=== PATIENT | male | born 1980 | race Caucasian/White ===

== ENCOUNTER 2023-11-29 13:27 | Emergency (ER) | payer OTHER ==
[~2023-11-29] VITALS: Ht 180.3 cm; Wt 95.3 kg
[2023-11-29 13:27] VITALS: BP_SYST 154; PULSE 104; RESP 22; TEMP 98.1; O2SAT 99
[2023-11-29] MEDS ORDERED: NITROGLYCERIN 1 INCH (GM) OINT. TP ONE (13:45)
[2023-11-29] MEDS ORDERED: ASPIRIN 81 MG TAB.CHEW PO ONE (13:45)
[2023-11-29] MEDS ORDERED: NACL 0.9% 1,000 ML IV ONE ×2 (13:45→14:15)
[2023-11-29] MEDS ORDERED: ONDANSETRON HCL 4 MG/2 ML VIAL ONE (13:55)
[2023-11-29 14:09] LABS: BASOPHILS % (AUTO) 0.8 % (0.0-2.0); EOSINOPHILS % (AUTO) 0.3 % (0.0-4.0); HEMATOCRIT 46.8 % (36-54); HEMOGLOBIN 15.5 g/dL (14.0-18.0); LYMPHOCYTES # (AUTO) 2.9 K/uL (1.0-5.5); LYMPHOCYTES % (AUTO) 49.4 % (20.5-51.5); MEAN CORPUSCULAR HEMOGLOBIN 27 pg (27-31); MEAN CORPUSCULAR HGB CONC 33 % (32-36); MEAN CORPUSCULAR VOLUME 80 fL (79.0-98.0); MONOCYTES # (AUTO) 0.4 K/uL (0.0-1.0); MONOCYTES % (AUTO) 6.9 % (1.7-9.3); NEUTROPHILS # (AUTO) 2.5 K/uL (1.8-7.7); NEUTROPHILS % (AUTO) 42.6 % (40.0-70.0); PLATELET COUNT (AUTO) 322 K/uL (130-430); RED BLOOD CELL COUNT(AUTO) 5.84 MIL/uL (4.2-6.2); RED CELL DISTRIBUTION WIDTH 13.5 % (9.0-15.0); WHITE BLOOD COUNT (AUTO) 5.9 K/uL (4.8-10.8)
[2023-11-29] MEDS ORDERED: ONDANSETRON HCL 4 MG/2 ML VIAL IVP ONE ×2 (14:15→17:30)
[2023-11-29] MEDS ORDERED: METOCLOPRAMIDE HCL 10 MG/2 ML VIAL IVP ONE (14:15)
[2023-11-29 14:19] LABS: ANION GAP 13 (5-15); CALCIUM 9.8 mg/dL (8.4-11.0); CARBON DIOXIDE 21 mmol/L (23-29); CHLORIDE 97 mmol/L (98-107); CREATININE 1.35 mg/dL (0.55-1.30); GFR AFRICAN AMERICAN 74 mL/min (>90); GLUCOSE 107 mg/dL (74-106); POTASSIUM 3.1 mmol/L (3.5-5.1); SODIUM SERUM 131 mmol/L (136-145); UREA NITROGEN, BLOOD 14 mg/dL (8-21)
[2023-11-29 14:21] LABS: GFR NON AFRICAN-AMERICAN 61 mL/min (>90)
[2023-11-29 14:27] LABS: LIPASE 45 U/L (16-77)
[2023-11-29 14:29] LABS: ALCOHOL, BLOOD < 3 mg/dL (<10)
[2023-11-29] MEDS ORDERED: MORPHINE 4 MG INJ. 4 MG/ML VIAL IVP ONE (15:00)
[2023-11-29 15:54] LABS: BARBITURATE, URINE NEGATIVE (NEG <=200); BENZODIAZEPINE, URINE NEGATIVE (NEG <=150); CANNABINOID, URINE POSITIVE (NEG <=50); COCAINE, URINE NEGATIVE (NEG <=150); METHAMPHETAMINES SCREEN,URINE NEGATIVE (NEG <=500); OPIATE, URINE NEGATIVE (NEG <=100); PHENCYCLIDINE SCREEN,URINE NEGATIVE (NEG <=25); UR TRICYCLIC ANTIDEPRESSANTS NEGATIVE (NEG <=300); URINE AMPHETAMINE NEGATIVE (NEG <=500); URINE METHADONE NEGATIVE (NEG <=200); URINE OXYCODONE SCREEN NEGATIVE (NEG <=100)
[2023-11-29] MEDS ORDERED: PANTOPRAZOLE SODIUM 40 MG/VIAL (PROTONIX) IVP ONE (16:00)
[2023-11-29] MEDS ORDERED: HYDROcodone/ACETAMIN 5-325 MG TAB (NORCO/ VICODIN) PO ONE (16:00)
[2023-11-29 16:05] LABS: COVID19 ANTIGEN SOFIA FIA NEGATIVE (NEGATIVE)
[2023-11-29 16:06] LABS: INFLUENZA TYPE A Negative (NEGATIVE); INFLUENZA TYPE B NEGATIVE (NEGATIVE)
[2023-11-29] MEDS ORDERED: DIPHENHYDRAMINE INJ 50 MG/ML VIAL IVP ONE (19:45)
[2023-11-29 21:23] VITALS: BP_SYST 119; PULSE 86; RESP 16; TEMP 98.2; O2SAT 95
== END 2023-11-29 21:23 | disposition short-term general hospital (02) ==
LOC: SED 13:27
DX: R07.89 Other chest pain (principal); R11.0 Nausea; I10 Essential (primary) hypertension; Z79.899 Other long term (current) drug therapy; Z20.822 Contact with and (suspected) exposure to COVID-19
CPT/HCPCS: 99285; 71260; 96374; 96375; 71045; 96361; 87426; 80307; 80048; 83880; 83690; 85025; 84484; 36415; 93005; 76376; 74177; 96376; 87804 ×2; J1200; J2765; J2405; C9113; J2270; J7030; G0482; Q9967

== ENCOUNTER 2024-01-05 14:31 | Emergency (ER) | payer OTHER ==
[~2024-01-05] VITALS: Ht 180.3 cm; Wt 95.7 kg
[2024-01-05] MEDS: PROPARACAINE (OPTHANINE 0.5%) 15 ML DROPS OP ONE (14:30)
[2024-01-05] MEDS: FLUORESCEIN SODIUM 1 MG OPHTHALMIC STRIP OP ONE (14:30)
[2024-01-05 14:40] VITALS: BP_SYST 124; PULSE 110; RESP 19; TEMP 98; O2SAT 98
[2024-01-05] MEDS ORDERED: TETRACAINE HCL/PF 0.5% OPHTHALMIC DROPS 4 ML OP ONE (14:45)
[2024-01-05] MEDS ORDERED: FLUORESCEIN SODIUM 1 MG OPHTHALMIC STRIP OP ONE (14:45)
[2024-01-05] MEDS ORDERED: HYDR-3917 PO (16:27)
[2024-01-05] MEDS ORDERED: IBUP-1971 PO (16:27)
[2024-01-05] MEDS: HYDROcodone/ACETAMIN 5-325 MG TAB (NORCO/ VICODIN) PO ONE (16:52)
[2024-01-05] MEDS: IBUPROFEN 800 MG TABLET PO ONE (16:52)
[2024-01-05 16:53] VITALS: BP_SYST 124; PULSE 110; RESP 19; TEMP 98; O2SAT 98
== END 2024-01-05 16:33 | disposition home or self-care (01) ==
LOC: SED 14:31
DX: S16.1XXA Strain of muscle, fascia and tendon at neck level, initial encounter (principal); S20.211A Contusion of right front wall of thorax, initial encounter; S09.90XA Unspecified injury of head, initial encounter; I10 Essential (primary) hypertension; Z79.899 Other long term (current) drug therapy; V89.2XXA Person injured in unspecified motor-vehicle accident, traffic, initial encounter; Y93.89 Activity, other specified; Y92.89 Other specified places as the place of occurrence of the external cause; Y99.8 Other external cause status
CPT/HCPCS: 70450-TC; 71250-TC; 72125-TC; 76376; 99284